=== PATIENT | male | born 2000 | race African-American/Black ===

== ENCOUNTER 2022-03-12 21:13 | Emergency (ER) | payer SELFPAY ==
[~2022-03-12] VITALS: Ht 175.3 cm; Wt 54.5 kg
[2022-03-12 21:24] VITALS: TEMP 98.6
[2022-03-12 22:37] VITALS: BP 117/78; PULSE 70
== END 2022-03-12 22:40 | disposition home or self-care (01) ==
LOC: COL.ER 21:13
DX: R51.9 Headache, unspecified (principal); Z20.822 Contact with and (suspected) exposure to COVID-19; Z28.310 Unvaccinated for COVID-19
CPT/HCPCS: J2060